=== PATIENT | male | born 1950 | race Asian ===

== ENCOUNTER 2020-01-10 09:53 | Emergency (ER) | payer MEDICARE, MEDICAID ==
[~2020-01-10] VITALS: Ht 157.5 cm; Wt 65.9 kg
[2020-01-10] MEDS ORDERED: LOSA50TA37 PO (10:01)
[2020-01-10 10:29] LABS: BASOPHILS % (AUTO) 0.7 % (0.0-2.0); EOSINOPHILS % (AUTO) 0.3 % (1.0-6.0); HEMATOCRIT 50.3 % (41-53); HEMOGLOBIN 16.3 g/dL (13.5-17.5); LYMPHOCYTES # (AUTO) 1.1 K/uL (1.0-4.8); LYMPHOCYTES % (AUTO) 8.9 % (22.0-44.0); MEAN CORPUSCULAR HEMOGLOBIN 29.2 pg (26.0-34.0); MEAN CORPUSCULAR HGB CONC 32.4 G/dL (31.0-37.0); MEAN CORPUSCULAR VOLUME 90 fL (80-100); MONOCYTES # (AUTO) 0.8 K/uL (0.1-1.0); NEUTROPHILS # (AUTO) 9.9 K/uL (1.8-7.7); NEUTROPHILS % (AUTO) 83.1 % (40.0-70.0); PLATELET COUNT (AUTO) 265 K/uL (150-450); RED BLOOD CELL COUNT(AUTO) 5.57 MIL/uL (4.50-5.90); RED CELL DISTRIBUTION WIDTH 14.2 % (11.5-14.5)
[2020-01-10 10:47] LABS: ANION GAP 6 mmol/L (8-16); CALCIUM, TOTAL 9.5 mg/dL (8.8-10.5); CARBON DIOXIDE 29 mmol/L (22-29); CHLORIDE 100 mmol/L (98-107); CREATININE 1.14 mg/dL (0.60-1.30); GLOMERULAR FILTR. RATE CALC > 60 mL/min (>60); GLUCOSE,RANDOM 117 mg/dL (70-110); POTASSIUM 3.9 mmol/L (3.5-5.1); SODIUM SERUM 135 mmol/L (136-145); UREA NITROGEN, BLOOD 13 mg/dL (7-18)
[2020-01-10 10:52] LABS: ALANINE AMINOTRANSFERASE 48 U/L (12-78); ALKALINE PHOSPHATASE 81 U/L (46-116); ASPARTATE AMINOTRANSFERASE 28 U/L (15-37); BILIRUBIN,TOTAL 0.8 mg/dL (0.1-1.0); TOTAL PROTEIN, SERUM 8.3 g/dL (6.4-8.2)
[2020-01-10] MEDS ORDERED: ONDANSETRON HCL 4 MG/2 ML VIAL IVP ONE (11:00)
[2020-01-10] MEDS ORDERED: ACETAMINOPHEN 500 MG TABLET PO ONE (11:00)
[2020-01-10] MEDS ORDERED: MECLIZINE HCL 25 MG TABLET PO ONE (11:00)
[2020-01-10] MEDS ORDERED: AmLODIPine BESYLATE 5 MG TABLET PO ONE (12:15)
[2020-01-10 14:09] VITALS: BP 135/97
== END 2020-01-10 14:17 | disposition home or self-care (01) ==
LOC: EMS 10:09
DX: R42 Dizziness and giddiness (principal); I10 Essential (primary) hypertension
CPT/HCPCS: 36415; 70450; 80053; 84484; 85025; 93005; 96374; 99285; J2405

== ENCOUNTER 2020-02-20 14:07 | Inpatient (IN) | payer MEDICARE, MEDICAID ==
[~2020-02-20] VITALS: Ht 157.5 cm; Wt 64.3 kg
[~2020-02-20 14:07] MED LIST: LOSA50TA37 PO
[2020-02-20] MEDS ORDERED: MECL25TA39 PO (14:11)
[2020-02-20] MEDS ORDERED: DiphenhydrAMINE HCL 50 MG/ML VIAL IVP ONE (16:00)
[2020-02-20 16:04] LABS: BASOPHILS % (AUTO) 0.5 % (0.0-2.0); EOSINOPHILS % (AUTO) 0 % (1.0-6.0); HEMATOCRIT 45.4 % (41-53); HEMOGLOBIN 14.7 g/dL (13.5-17.5); LYMPHOCYTES # (AUTO) 0.5 K/uL (1.0-4.8); LYMPHOCYTES % (AUTO) 4.2 % (22.0-44.0); MEAN CORPUSCULAR HEMOGLOBIN 29.6 pg (26.0-34.0); MEAN CORPUSCULAR HGB CONC 32.4 G/dL (31.0-37.0); MEAN CORPUSCULAR VOLUME 91 fL (80-100); MONOCYTES # (AUTO) 0.4 K/uL (0.1-1.0); MONOCYTES % (AUTO) 3.9 % (2.0-9.0); NEUTROPHILS # (AUTO) 9.9 K/uL (1.8-7.7); PLATELET COUNT (AUTO) 240 K/uL (150-450); RED BLOOD CELL COUNT(AUTO) 4.98 MIL/uL (4.50-5.90); RED CELL DISTRIBUTION WIDTH 13.7 % (11.5-14.5)
[2020-02-20 16:07] LABS: NEUTROPHILS % (AUTO) 91.4 % (40.0-70.0)
[2020-02-20 16:19] LABS: ANION GAP 9 mmol/L (8-16); CARBON DIOXIDE 27 mmol/L (22-29); CHLORIDE 104 mmol/L (98-107); CREATININE 1.09 mg/dL (0.60-1.30); GLOMERULAR FILTR. RATE CALC > 60 mL/min (>60); GLUCOSE,RANDOM 179 mg/dL (70-110); POTASSIUM 4.2 mmol/L (3.5-5.1); SODIUM SERUM 140 mmol/L (136-145); UREA NITROGEN, BLOOD 20 mg/dL (7-18)
[2020-02-20 16:22] LABS: PROTHROMBIN TIME 10.1 SEC (9.4-11.6)
[2020-02-20 16:26] LABS: ALANINE AMINOTRANSFERASE 26 U/L (12-78); ALBUMIN 3.8 g/dL (3.4-5.0); ALKALINE PHOSPHATASE 64 U/L (46-116); ASPARTATE AMINOTRANSFERASE 23 U/L (15-37); BILIRUBIN,TOTAL 0.7 mg/dL (0.1-1.0); TOTAL PROTEIN, SERUM 8.2 g/dL (6.4-8.2)
[2020-02-20 16:32] LABS: B-TYPE NATRIURETIC PEPTIDE 11 pg/mL (0-100)
[2020-02-20] MEDS ORDERED: SODIUM CHLORIDE 0.9% 1,000 ML IV ONE (17:30)
[2020-02-20] MEDS ORDERED: ASPIRIN 325 MG TABLET PO ONE (18:45)
[2020-02-20] MEDS ORDERED: GADOBUTROL 1 MMOL/ML 10 ML VIAL IVP ONE (20:03)
[2020-02-20 22:56] LABS: APPEARANCE,URINE CLEAR (CLEAR); BILIRUBIN,URINE NEGATIVE (NEGATIVE); GLUCOSE, URINE (UA) NEGATIVE (NEGATIVE); KETONES,URINE TRACE mg/dL (NEGATIVE); LEUKOCYTE ESTERASE ,URINE NEGATIVE (NEGATIVE); NITRATE,URINE NEGATIVE (NEGATIVE); OCCULT BLOOD,URINE NEGATIVE (NEGATIVE); PH,URINE 6.5 (5.0-8.0); PROTEIN,URINE TRACE (NEGATIVE); UROBILINOGEN,URINE 0.2 mg/dL (<=1.0)
[2020-02-20] MEDS ORDERED: ACETAMINOPHEN 325 MG TABLET PO PRN (23:15)
[2020-02-20] MEDS ORDERED: 0.9% SODIUM CHLORIDE 10 ML SYRINGE IVP PRN (23:15)
[2020-02-20] MEDS ORDERED: ONDANSETRON HCL 4 MG/2 ML VIAL IVP PRN (23:15)
[2020-02-21] MEDS ORDERED: HYDROCODONE/ACETAMINOPHEN 5-325 MG TABLET PO PRN (05:00)
[2020-02-21] MEDS ORDERED: BISACODYL 10 MG RECTAL RECTAL SUPPOSITORY PR PRN (05:00)
[2020-02-21] MEDS ORDERED: ACETAMINOPHEN 325 MG TABLET PO PRN (05:00)
[2020-02-21] MEDS ORDERED: ONDANSETRON HCL 4 MG/2 ML VIAL IVP PRN (05:00)
[2020-02-21] MEDS ORDERED: MAGNESIUM HYDROXIDE SUSPENSION 30 ML UDCUP PO PRN (05:00)
[2020-02-21] MEDS ORDERED: ALBUTEROL SULFATE 2.5 MG/0.5 ML NEB SOLUTION NEB PRN (05:00)
[2020-02-21] MEDS ORDERED: IPRATROPIUM BROMIDE 0.5 MG/2.5 ML NEB SOLUTION NEB PRN (05:00)
[2020-02-21] MEDS ORDERED: MORPHINE SULFATE 2 MG/ML SYRINGE IVP PRN (05:00)
[2020-02-21] MEDS ORDERED: ZOLPIDEM TARTRATE 5 MG TABLET PO PRN (05:00)
[2020-02-21] MEDS: DOCUSATE SODIUM 100 MG CAPSULE PO SCH ×2 (08:44→20:24)
[2020-02-21] MEDS: ASPIRIN 81 MG EC TABLET PO SCH (08:45)
[2020-02-21] MEDS: HEPARIN SODIUM,PORCINE 5,000 UNITS/ML VIAL SQ SCH ×3 (08:49→23:28)
[2020-02-21] MEDS ORDERED: ASPIRIN 81 MG EC TABLET PO SCH (09:00)
[2020-02-21] MEDS: AmLODIPine BESYLATE 2.5 MG TABLET PO SCH (11:23)
[2020-02-21] MEDS: ATORVASTATIN CALCIUM 40 MG TABLET PO SCH (11:23)
[2020-02-21 11:28] LABS: BASOPHILS % (AUTO) 0.7 % (0.0-2.0); EOSINOPHILS % (AUTO) 1.1 % (1.0-6.0); HEMATOCRIT 43.1 % (41-53); LYMPHOCYTES # (AUTO) 1.1 K/uL (1.0-4.8); LYMPHOCYTES % (AUTO) 13.7 % (22.0-44.0); MEAN CORPUSCULAR HEMOGLOBIN 29.3 pg (26.0-34.0); MEAN CORPUSCULAR HGB CONC 32.6 G/dL (31.0-37.0); MEAN CORPUSCULAR VOLUME 90 fL (80-100); MONOCYTES # (AUTO) 0.8 K/uL (0.1-1.0); MONOCYTES % (AUTO) 10.3 % (2.0-9.0); NEUTROPHILS % (AUTO) 74.2 % (40.0-70.0); PLATELET COUNT (AUTO) 219 K/uL (150-450); RED BLOOD CELL COUNT(AUTO) 4.79 MIL/uL (4.50-5.90); RED CELL DISTRIBUTION WIDTH 13.8 % (11.5-14.5)
[2020-02-21 11:46] LABS: ANION GAP 7 mmol/L (8-16); CALCIUM, TOTAL 8.7 mg/dL (8.8-10.5); CARBON DIOXIDE 29 mmol/L (22-29); CHLORIDE 108 mmol/L (98-107); CREATININE 0.94 mg/dL (0.60-1.30); GLOMERULAR FILTR. RATE CALC > 60 mL/min (>60); GLUCOSE,RANDOM 102 mg/dL (70-110); SODIUM SERUM 144 mmol/L (136-145); UREA NITROGEN, BLOOD 14 mg/dL (7-18)
[2020-02-21 11:49] LABS: ALANINE AMINOTRANSFERASE 27 U/L (12-78); ALBUMIN 3.4 g/dL (3.4-5.0); ALKALINE PHOSPHATASE 57 U/L (46-116); ASPARTATE AMINOTRANSFERASE 28 U/L (15-37); TOTAL PROTEIN, SERUM 7.4 g/dL (6.4-8.2)
[2020-02-21 18:09] VITALS: BP 142/99
[2020-02-21 20:03] VITALS: BP 140/89
[2020-02-22 00:30] VITALS: BP 128/91
[2020-02-22 04:42] VITALS: BP 143/86
[2020-02-22 08:02] VITALS: BP 150/111
[2020-02-22] MEDS: DOCUSATE SODIUM 100 MG CAPSULE PO SCH ×2 (09:02→20:30)
[2020-02-22] MEDS: ATORVASTATIN CALCIUM 40 MG TABLET PO SCH (09:02)
[2020-02-22] MEDS: HEPARIN SODIUM,PORCINE 5,000 UNITS/ML VIAL SQ SCH ×2 (09:02→16:35)
[2020-02-22] MEDS: ASPIRIN 81 MG EC TABLET PO SCH (09:02)
[2020-02-22] MEDS: AmLODIPine BESYLATE 2.5 MG TABLET PO SCH (09:02)
[2020-02-22 11:22] VITALS: BP 133/89
[2020-02-22] MEDS ORDERED: AmLODIPine BESYLATE 2.5 MG TABLET PO ONE (12:00)
[2020-02-22 15:19] VITALS: BP 139/93
[2020-02-22 20:04] VITALS: BP 133/91
[2020-02-23] MEDS: HEPARIN SODIUM,PORCINE 5,000 UNITS/ML VIAL SQ SCH ×2 (00:25→08:40)
[2020-02-23 00:26] VITALS: BP 133/83
[2020-02-23 05:08] VITALS: BP 125/84
[2020-02-23 07:49] LABS: THYROID STIMULATING HORMONE 4.27 uIU/mL (0.36-3.74)
[2020-02-23] MEDS: ASPIRIN 81 MG EC TABLET PO SCH (08:39)
[2020-02-23] MEDS: ATORVASTATIN CALCIUM 40 MG TABLET PO SCH (08:39)
[2020-02-23 08:40] VITALS: BP 147/95
[2020-02-23] MEDS: DOCUSATE SODIUM 100 MG CAPSULE PO SCH (08:40)
[2020-02-23] MEDS ORDERED: AmLODIPine BESYLATE 5 MG TABLET PO SCH (09:00)
[2020-02-23] MEDS ORDERED: ASPI-556 PO (11:13)
[2020-02-23] MEDS ORDERED: AMLO5TAB66 PO (11:14)
[2020-02-23] MEDS ORDERED: ATOR20TA86 PO (11:15)
[2020-02-23 11:30] VITALS: BP 141/96
== END 2020-02-23 13:15 | disposition home health service (06) | DRG 65 ==
LOC: EMS 14:09 → 5S 02-21 05:00 → UNDOADMIN 02-21 16:20 → 5S 02-21 17:04
PROVIDERS: ADMIT Internal Medicine; ATTEND Internal Medicine
DX: I63.9 Cerebral infarction, unspecified (principal); I24.8 Other forms of acute ischemic heart disease; I10 Essential (primary) hypertension; R79.89 Other specified abnormal findings of blood chemistry
CPT/HCPCS: 70544; 70549; 70551; 84443; 92507; 92610; 93005; 93306; 93880; 97116; 97162; 97165; 97535; 99291; A9585; J1200; J1644; J7030; 36415-L1; 36415-TC; 71045-TC; 80061-TC; 81003-TC

== ENCOUNTER 2020-11-01 18:58 | Emergency (ER) | payer MEDICARE, OTHER ==
[~2020-11-01] VITALS: Ht 157.5 cm; Wt 61.8 kg
[~2020-11-01 18:58] MED LIST changes: +AMLO5TAB66 PO; +ASPI-556 PO; +ATOR20TA86 PO; +CHOL200016 PO; +DOCU100C33 PO; +HYDR-4723 PO; -LOSA50TA37 PO; +MECL25TA39 PO
[2020-11-01] MEDS ORDERED: KETOROLAC TROMETHAMINE 30 MG/ML VIAL IVP ONE (19:45)
[2020-11-01] MEDS ORDERED: MORPHINE SULFATE 4 MG/ML SYRINGE IVP ONE ×2 (19:45→20:45)
[2020-11-01 20:19] LABS: ANION GAP 10 mmol/L (8-16); CALCIUM, TOTAL 9.4 mg/dL (8.8-10.5); CARBON DIOXIDE 27 mmol/L (22-29); CHLORIDE 100 mmol/L (98-107); CREATININE 1.15 mg/dL (0.60-1.30); GLOMERULAR FILTR. RATE CALC > 60 mL/min (>60); GLUCOSE,RANDOM 110 mg/dL (70-110); POTASSIUM 4.4 mmol/L (3.5-5.1); SODIUM SERUM 137 mmol/L (136-145); UREA NITROGEN, BLOOD 16 mg/dL (7-18)
[2020-11-01 20:20] LABS: BASOPHILS % (AUTO) 0.6 % (0.0-2.0); EOSINOPHILS % (AUTO) 0.7 % (1.0-6.0); HEMATOCRIT 38.4 % (41-53); HEMOGLOBIN 12.7 g/dL (13.5-17.5); LYMPHOCYTES # (AUTO) 0.5 K/uL (1.0-4.8); LYMPHOCYTES % (AUTO) 6.5 % (22.0-44.0); MEAN CORPUSCULAR HEMOGLOBIN 29.9 pg (26.0-34.0); MEAN CORPUSCULAR HGB CONC 33.1 G/dL (31.0-37.0); MEAN CORPUSCULAR VOLUME 90 fL (80-100); MONOCYTES # (AUTO) 0.7 K/uL (0.1-1.0); MONOCYTES % (AUTO) 7.9 % (2.0-9.0); NEUTROPHILS % (AUTO) 84.3 % (40.0-70.0); PLATELET COUNT (AUTO) 312 K/uL (150-450); RED BLOOD CELL COUNT(AUTO) 4.24 MIL/uL (4.50-5.90); RED CELL DISTRIBUTION WIDTH 14.2 % (11.5-14.5)
[2020-11-01 21:00] VITALS: BP 136/82
== END 2020-11-01 21:28 | disposition home or self-care (01) ==
LOC: EMS 18:58
DX: M54.5 Low back pain (principal); G89.29 Other chronic pain; E11.9 Type 2 diabetes mellitus without complications; I10 Essential (primary) hypertension; Z79.82 Long term (current) use of aspirin; Z85.46 Personal history of malignant neoplasm of prostate
CPT/HCPCS: 36415; 80048; 85025; 96374; 96375; 96376; 99284; J1885; J2270

== ENCOUNTER 2020-11-02 15:01 | Emergency (ER) | payer MEDICARE, MEDICAID ==
[~2020-11-02] VITALS: Ht 154.9 cm; Wt 50.0 kg
[2020-11-02] MEDS ORDERED: KETOROLAC TROMETHAMINE 30 MG/ML VIAL IVP ONE (17:30)
[2020-11-02] MEDS ORDERED: MORPHINE SULFATE 4 MG/ML SYRINGE IVP ONE ×2 (17:30→18:30)
[2020-11-02 17:55] LABS: COVID AG,FIA SOURCE NASOPHARYNGEAL
[2020-11-02 18:30] LABS: EOSINOPHILS % (AUTO) 2.4 % (1.0-6.0); HEMATOCRIT 39.1 % (41-53); HEMOGLOBIN 13.3 g/dL (13.5-17.5); LYMPHOCYTES # (AUTO) 0.8 K/uL (1.0-4.8); LYMPHOCYTES % (AUTO) 10.2 % (22.0-44.0); MEAN CORPUSCULAR HGB CONC 33.9 G/dL (31.0-37.0); MEAN CORPUSCULAR VOLUME 88 fL (80-100); MONOCYTES # (AUTO) 0.9 K/uL (0.1-1.0); MONOCYTES % (AUTO) 10.7 % (2.0-9.0); NEUTROPHILS % (AUTO) 75.7 % (40.0-70.0); PLATELET COUNT (AUTO) 282 K/uL (150-450); RED BLOOD CELL COUNT(AUTO) 4.42 MIL/uL (4.50-5.90); RED CELL DISTRIBUTION WIDTH 14.4 % (11.5-14.5)
[2020-11-02 18:50] LABS: CALCIUM, TOTAL 9.8 mg/dL (8.8-10.5); CREATININE 1.21 mg/dL (0.60-1.30); POTASSIUM 3.8 mmol/L (3.5-5.1)
[2020-11-02 19:22] VITALS: BP 142/87
== END 2020-11-02 20:04 | disposition home or self-care (01) ==
LOC: EMS 15:16
DX: G89.29 Other chronic pain (principal); M54.9 Dorsalgia, unspecified; Z20.822 Contact with and (suspected) exposure to COVID-19
CPT/HCPCS: 36415; 80048; 82962; 85025; 87426; 96374; 96375; 96376; 99284; J1885; J2270

== ENCOUNTER 2020-11-26 08:33 | Inpatient (IN) | payer MEDICARE, MEDICAID ==
[~2020-11-26] VITALS: Ht 167.6 cm; Wt 57.5 kg
[2020-11-26 09:01] LABS: GLUCOSE,POINT OF CARE 154 MG/DL (70-110)
[2020-11-26] MEDS ORDERED: MORPHINE SULFATE 4 MG/ML SYRINGE IVP ONE (10:00)
[2020-11-26] MEDS ORDERED: ONDANSETRON HCL 4 MG/2 ML VIAL IVP ONE (10:00)
[2020-11-26] MEDS ORDERED: DEXTROSE 5%-0.45% SODIUM CHL 1,000 ML IV ONE (10:00)
[2020-11-26 10:22] LABS: BASOPHILS % (AUTO) 0.8 % (0.0-2.0); EOSINOPHILS % (AUTO) 1.3 % (1.0-6.0); HEMATOCRIT 41.6 % (41-53); HEMOGLOBIN 13.6 g/dL (13.5-17.5); LYMPHOCYTES # (AUTO) 0.8 K/uL (1.0-4.8); LYMPHOCYTES % (AUTO) 11.6 % (22.0-44.0); MEAN CORPUSCULAR HEMOGLOBIN 29.3 pg (26.0-34.0); MEAN CORPUSCULAR HGB CONC 32.8 G/dL (31.0-37.0); MEAN CORPUSCULAR VOLUME 89 fL (80-100); MONOCYTES # (AUTO) 0.6 K/uL (0.1-1.0); MONOCYTES % (AUTO) 8.4 % (2.0-9.0); NEUTROPHILS # (AUTO) 5.2 K/uL (1.8-7.7); NEUTROPHILS % (AUTO) 77.9 % (40.0-70.0); PLATELET COUNT (AUTO) 241 K/uL (150-450); RED BLOOD CELL COUNT(AUTO) 4.65 MIL/uL (4.50-5.90); RED CELL DISTRIBUTION WIDTH 14.6 % (11.5-14.5)
[2020-11-26 10:49] LABS: ANION GAP 43 mmol/L (8-16); CALCIUM, TOTAL 8.9 mg/dL (8.8-10.5); CARBON DIOXIDE 20 mmol/L (22-29); CHLORIDE 88 mmol/L (98-107); CREATININE 0.95 mg/dL (0.60-1.30); GLUCOSE,RANDOM 101 mg/dL (70-110); POTASSIUM 3.5 mmol/L (3.5-5.1); SODIUM SERUM 151 mmol/L (136-145); UREA NITROGEN, BLOOD 11 mg/dL (7-18)
[2020-11-26 10:52] LABS: GLOMERULAR FILTR. RATE CALC > 60 mL/min (>60)
[2020-11-26 10:54] LABS: ALANINE AMINOTRANSFERASE 20 U/L (12-78); ALBUMIN 3.2 g/dL (3.4-5.0); ALKALINE PHOSPHATASE 78 U/L (46-116); ASPARTATE AMINOTRANSFERASE 26 U/L (15-37); BILIRUBIN,TOTAL 0.4 mg/dL (0.1-1.0); LIPASE 76 U/L (73-393); TOTAL PROTEIN, SERUM 7.3 g/dL (6.4-8.2)
[2020-11-26] MEDS ORDERED: SODIUM CHLORIDE 0.9% 2,000 ML IV ONE (11:15)
[2020-11-26] MEDS ORDERED: SODIUM CHLORIDE 0.9% 100 ML ONE (11:24)
[2020-11-26] MEDS ORDERED: IOVERSOL 350 MG/ML 100 ML VIAL ONE (11:24)
[2020-11-26 13:26] LABS: SALICYLATE < 2.8 mg/dL (2.8-20.0)
[2020-11-26 13:33] LABS: APPEARANCE,URINE CLEAR (CLEAR); BILIRUBIN,URINE NEGATIVE (NEGATIVE); GLUCOSE, URINE (UA) NEGATIVE (NEGATIVE); KETONES,URINE NEGATIVE (NEGATIVE); LEUKOCYTE ESTERASE ,URINE NEGATIVE (NEGATIVE); NITRATE,URINE NEGATIVE (NEGATIVE); OCCULT BLOOD,URINE TRACE (NEGATIVE); PROTEIN,URINE NEGATIVE (NEGATIVE); UROBILINOGEN,URINE 0.2 mg/dL (<=1.0)
[2020-11-26 13:39] LABS: ACETAMINOPHEN < 2 mcg/mL (10-30)
[2020-11-26 13:41] LABS: BACTERIA,URINE None Seen /HPF (None Seen); RBC,URINE None Seen /HPF (0-2); SQUAMOUS EPITHELIAL CELL,UR Few /LPF (None Seen); WBC,URINE None Seen /HPF (0-5)
[2020-11-26] MEDS ORDERED: MORPHINE SULFATE 2 MG/ML SYRINGE IVP PRN (14:00)
[2020-11-26] MEDS ORDERED: MAGNESIUM HYDROXIDE SUSPENSION 30 ML UDCUP PO PRN (14:00)
[2020-11-26] MEDS ORDERED: BISACODYL 10 MG RECTAL RECTAL SUPPOSITORY PR PRN (14:00)
[2020-11-26] MEDS ORDERED: SODIUM CHLORIDE 0.45% 1,000 ML IV SCH (14:00)
[2020-11-26 14:18] LABS: COVID AG,FIA SOURCE NASAL SWAB
[2020-11-26 15:06] LABS: GLUCOSE,POINT OF CARE 138 MG/DL (70-110)
[2020-11-26 15:48] VITALS: BP 139/80
[2020-11-26] MEDS: HEPARIN SODIUM,PORCINE 5,000 UNITS/ML VIAL SQ SCH ×2 (16:13→23:46)
[2020-11-26] MEDS: OxyCODONE HCL/ACETAMINOPHEN 5-325 MG TABLET PO PRN ×2 (16:15→20:28)
[2020-11-26 19:35] VITALS: BP 144/85
[2020-11-26] MEDS: DOCUSATE SODIUM 100 MG CAPSULE PO SCH (20:13)
[2020-11-26 22:35] VITALS: BP 139/78
[2020-11-27 03:30] VITALS: BP 137/80
[2020-11-27] MEDS: OxyCODONE HCL/ACETAMINOPHEN 5-325 MG TABLET PO PRN (04:16)
[2020-11-27 07:25] LABS: ANION GAP 9 mmol/L (8-16); CALCIUM, TOTAL 9.2 mg/dL (8.8-10.5); CARBON DIOXIDE 26 mmol/L (22-29); CHLORIDE 104 mmol/L (98-107); CREATININE 0.93 mg/dL (0.60-1.30); GLUCOSE,RANDOM 91 mg/dL (70-110); POTASSIUM 3.5 mmol/L (3.5-5.1); SODIUM SERUM 139 mmol/L (136-145); UREA NITROGEN, BLOOD 8 mg/dL (7-18)
[2020-11-27 07:29] LABS: GLOMERULAR FILTR. RATE CALC > 60 mL/min (>60)
[2020-11-27 07:37] VITALS: BP 152/92
[2020-11-27] MEDS ORDERED: POTASSIUM CHLORIDE 10 MEQ ER TABLET PO ONE (08:30)
[2020-11-27] MEDS: HEPARIN SODIUM,PORCINE 5,000 UNITS/ML VIAL SQ SCH ×3 (09:00→23:37)
[2020-11-27] MEDS: DOCUSATE SODIUM 100 MG CAPSULE PO SCH ×2 (09:01→20:00)
[2020-11-27] MEDS: ASPIRIN 81 MG CHEWABLE TABLET PO SCH (09:01)
[2020-11-27] MEDS: FAMOTIDINE 20 MG TABLET PO SCH (09:02)
[2020-11-27] MEDS: AmLODIPine BESYLATE 5 MG TABLET PO SCH (09:02)
[2020-11-27] MEDS: CHOLECALCIFEROL (VIT D3) 1,000 UNITS [25 MCG] TABLET PO SCH (09:03)
[2020-11-27] MEDS: GABAPENTIN 100 MG CAPSULE PO SCH ×3 (09:20→20:00)
[2020-11-27] MEDS: ACETAMINOPHEN 325 MG TABLET PO PRN ×3 (13:24→21:31)
[2020-11-27 20:00] VITALS: BP 140/88
[2020-11-27 23:00] VITALS: BP 134/83
[2020-11-28 05:00] VITALS: BP 125/78
[2020-11-28] MEDS: FAMOTIDINE 20 MG TABLET PO SCH (08:05)
[2020-11-28] MEDS: AmLODIPine BESYLATE 5 MG TABLET PO SCH (08:05)
[2020-11-28] MEDS: DOCUSATE SODIUM 100 MG CAPSULE PO SCH (08:05)
[2020-11-28] MEDS: CHOLECALCIFEROL (VIT D3) 1,000 UNITS [25 MCG] TABLET PO SCH (08:06)
[2020-11-28] MEDS: GABAPENTIN 100 MG CAPSULE PO SCH ×2 (08:06→15:56)
[2020-11-28] MEDS: HEPARIN SODIUM,PORCINE 5,000 UNITS/ML VIAL SQ SCH ×2 (08:06→15:56)
[2020-11-28] MEDS: ASPIRIN 81 MG CHEWABLE TABLET PO SCH (08:06)
[2020-11-28] MEDS: ACETAMINOPHEN 325 MG TABLET PO PRN ×3 (08:11→15:56)
[2020-11-28 08:15] VITALS: BP 128/76
[2020-11-28] MEDS ORDERED: FAMO20 PO (12:25)
[2020-11-28] MEDS ORDERED: GABA-1216 PO (12:26)
[2020-11-28 15:48] VITALS: BP 121/84
== END 2020-11-28 17:26 | disposition home health service (06) | DRG 723 ==
LOC: EMS 08:33 → 6N 13:54
PROVIDERS: ADMIT Internal Medicine; ATTEND Internal Medicine
DX: C61 Malignant neoplasm of prostate (principal); M84.48XA Pathological fracture, other site, initial encounter for fracture; E87.0 Hyperosmolality and hypernatremia; M54.5 Low back pain; E86.0 Dehydration; R26.2 Difficulty in walking, not elsewhere classified; I10 Essential (primary) hypertension; E11.9 Type 2 diabetes mellitus without complications; Z20.822 Contact with and (suspected) exposure to COVID-19; Z86.73 Personal history of transient ischemic attack (TIA), and cerebral infarction without residual deficits; Z87.440 Personal history of urinary (tract) infections
CPT/HCPCS: 74177; 83605; 87040; 87426; 97116; 97163; 97530; 99285; G0480; G0481; J1644; J2270; J2405; J7030; J7050; 36415-L1; 36415-TC; 71045-TC

== ENCOUNTER 2020-12-02 15:01 | Emergency (ER) | payer MEDICARE, MEDICAID ==
[~2020-12-02] VITALS: Ht 157.5 cm; Wt 136.0 kg
[~2020-12-02 15:01] MED LIST changes: -ATOR20TA86 PO; +FAMO20 PO; +GABA-1216 PO
[2020-12-02] MEDS ORDERED: LIDOCAINE 5% TRANSDERMAL PATCH TD ONE (15:30)
[2020-12-02] MEDS ORDERED: KETOROLAC TROMETHAMINE 60 MG/2 ML VIAL IM ONE (15:30)
[2020-12-02] MEDS ORDERED: HYDROCODONE/ACETAMINOPHEN 5-325 MG TABLET PO ONE (15:30)
[2020-12-02 17:47] VITALS: BP 128/80
== END 2020-12-02 19:07 | disposition home or self-care (01) ==
LOC: EMS 15:01
DX: M84.48XA Pathological fracture, other site, initial encounter for fracture (principal); G89.29 Other chronic pain; M79.651 Pain in right thigh; E11.9 Type 2 diabetes mellitus without complications; I10 Essential (primary) hypertension; Z85.46 Personal history of malignant neoplasm of prostate; Z86.73 Personal history of transient ischemic attack (TIA), and cerebral infarction without residual deficits
CPT/HCPCS: 96372; 99285; J1885